=== PATIENT | female | born 1965 | race Caucasian/White ===

== ENCOUNTER → 2023-09-22 09:19 | Outpatient (REF) | payer BC, SELFPAY | LOC: HWWDC 09:19 | PROVIDERS: ATTENDING PHYSICIAN Obstetrics & Gynecology Gynecology; FAMILY PHYSICIAN Physician Assistant Medical | DX: Z12.31 Encounter for screening mammogram for malignant neoplasm of breast (principal) | CPT/HCPCS: 77063; 77067 ==

== ENCOUNTER → 2023-10-01 10:14 | Outpatient (REF) | payer BC, SELFPAY | LOC: HWRAD 10:14 | PROVIDERS: ATTENDING PHYSICIAN Physician Assistant Medical | DX: Z78.0 Asymptomatic menopausal state (principal) | CPT/HCPCS: 77080 ==

== ENCOUNTER → 2024-08-04 08:05 | Outpatient (REF) | payer BC, SELFPAY | LOC: RCS 08:05 | PROVIDERS: ATTENDING PHYSICIAN Internal Medicine Cardiovascular Disease | DX: I48.0 Paroxysmal atrial fibrillation (principal) | CPT/HCPCS: 93005 ==

== ENCOUNTER → 2024-09-28 15:45 | Outpatient (REF) | payer BC, SELFPAY | LOC: WDC 15:45 | PROVIDERS: ATTENDING PHYSICIAN Obstetrics & Gynecology Gynecology; FAMILY PHYSICIAN Physician Assistant Medical | DX: Z12.31 Encounter for screening mammogram for malignant neoplasm of breast (principal) | CPT/HCPCS: 77063; 77067 ==

== ENCOUNTER 2025-02-15 07:00 | Day surgery (SDC) | payer BC, SELFPAY ==
[2025-02-15 07:46] VITALS: BMI 26.0
--- NOTE | 2025-02-15 09:58 | ITS.CL.CARDI ---
Clubhouse Attendant - Cardioversion
Cardioversion
Procedure Report:
Date of Procedure: 02/15/2025.
Procedure: Cardioversion.
Indication: Symptomatic atrial fibrillation.
Performing Physician: Vivian Samaniego MD
Technique: The patient was brought to the holding area. Signed informed consent was obtained. A time out was called and performed. The patient was sedated by a member of the anesthesia service. Anticoagulation status was reviewed and was
appropriate. VIK was performed and ruled out suspicion of intracardiac thrombus.R-2 pads were placed anteriorly and posteriorly. A200 J synchronized biphasic shock restored normal sinus rhythm without significant bradycardia. There were no
complications.
Conclusion: Uncomplicated cardioversion from atrial fibrillation to sinus rhythm.
Recommendation: Routine post cardioversion care. Continue custodial anticoagulation.
== END 2025-02-15 09:46 | disposition home or self-care (01) ==
LOC: CATH 07:00
PROVIDERS: ATTENDING PHYSICIAN Internal Medicine Cardiovascular Disease; FAMILY PHYSICIAN Physician Assistant Medical
DX: I48.91 Unspecified atrial fibrillation (principal); I31.39 Other pericardial effusion (noninflammatory); I08.1 Rheumatic disorders of both mitral and tricuspid valves; Z79.01 Long term (current) use of anticoagulants; I44.0 Atrioventricular block, first degree; I44.4 Left anterior fascicular block; I49.8 Other specified cardiac arrhythmias
CPT/HCPCS: 93312; 93320; 93325; 92960; 93005

== ENCOUNTER → 2025-02-22 12:50 | Outpatient (REF) | payer BC, SELFPAY | LOC: RCS 12:50 | PROVIDERS: ATTENDING PHYSICIAN Internal Medicine Cardiovascular Disease; FAMILY PHYSICIAN Physician Assistant Medical | DX: I50.22 Chronic systolic (congestive) heart failure (principal); I42.5 Other restrictive cardiomyopathy; I48.0 Paroxysmal atrial fibrillation | CPT/HCPCS: 93306; 93356 ==